=== PATIENT | male | born 1975 | race African-American/Black ===

== ENCOUNTER 2021-08-31 20:20 | Emergency (ER) | payer OTHER ==
[2021-08-31 21:17] VITALS: BP 189/107; PULSE 90; TEMP 98.5; BMI 31.5
== END 2021-08-31 22:12 | disposition home or self-care (01) ==
LOC: FER 20:20
DX: S22.41XA Multiple fractures of ribs, right side, initial encounter for closed fracture (principal); W17.89XA Other fall from one level to another, initial encounter
CPT/HCPCS: 99283-25